=== PATIENT | female | born 1945 | race Caucasian/White ===

== ENCOUNTER 2017-04-05 07:49 | Day surgery (SDC) | payer OTHER ==
[~2017-04-05] VITALS: Ht 147.3 cm; Wt 68.0 kg
[~2017-04-05 07:49] MED LIST: COZAAR25 MG PO; LIPITOR20 MG PO; NORVASC10 MG PO; VITAMIN D2000 UNIT PO
[2017-04-05 08:40] VITALS: BP 137/62
[2017-04-05 10:45] VITALS: BP 136/36
[2017-04-05 11:30] VITALS: BP 125/60
== END 2017-04-05 11:40 | disposition home or self-care (01) ==
LOC: SDC 07:49
DX: C43.59 Malignant melanoma of other part of trunk (principal); I10 Essential (primary) hypertension; E78.5 Hyperlipidemia, unspecified; E66.9 Obesity, unspecified; Z68.31 Body mass index [BMI] 31.0-31.9, adult; K21.9 Gastro-esophageal reflux disease without esophagitis; M85.80 Other specified disorders of bone density and structure, unspecified site; Z85.6 Personal history of leukemia; Z87.891 Personal history of nicotine dependence
CPT/HCPCS: 88305; J0131; J0690; J1100; J1885; J2405; J3010